=== PATIENT | male | born 1960 | race Caucasian/White ===

== ENCOUNTER 2017-01-23 05:55 | Emergency (ER) | payer BC ==
[~2017-01-23 05:55] MED LIST: MULTIPLE VIT PO
== END 2017-01-23 07:10 | disposition home or self-care (01) ==
LOC: ER 05:55
DX: L50.0 Allergic urticaria (principal); I10 Essential (primary) hypertension; Z79.899 Other long term (current) drug therapy
CPT/HCPCS: 96374; 96375; 99283; J1200; J2930